=== PATIENT | male | born 1960 | race Hispanic/Latino ===

== ENCOUNTER 2022-10-27 07:41 | Day surgery (SDC) | payer OTHER ==
--- NOTE | 2022-10-26 11:38 | RAD REPORT ---
EXAM DESCRIPTION: RAD - Chest Pa And Lat (2 Views) - 10/26/2022 11:33 am CLINICAL HISTORY: preop for surgery, hypertension, diabetes COMPARISON: No comparisons FINDINGS: Lines: None. Lungs: No evidence of edema or pneumonia. Pleural: No significant pleural effusions or pneumothorax. Cardiac: The heart size is within normal limits. Mediastinum: Within normal limits. Bones: No acute fractures. Other: None IMPRESSION: No acute cardiopulmonary disease.
[2022-10-26 11:52] LABS: Absolute Lymphocytes (CBC) 1.2 K/uL (0.7-4.9); Hematocrit 28.5 % (39.6-49.0); Lymphocytes % 17.8 % (15.3-44.8); MCV 94.8 fL (80-100); Platelets 194 thou/uL (152-406)
[2022-10-26 12:00] LABS: Potassium 3.9 mEq/L (3.5-5.1)
[2022-10-27] MEDS ORDERED: NA CHLORIDE 0.9% 1,000 ML ONE (08:25)
[2022-10-27] MEDS ORDERED: KETOROLAC 30 MG/ML INJ ONE (08:58)
[2022-10-27] MEDS ORDERED: propofoL 200 MG/20 ML VIAL IV ONE ×2 (08:58→09:40)
[2022-10-27] MEDS ORDERED: FENTANYL CITR 100 MCG/2 ML ONE ×2 (08:58→09:41)
[2022-10-27] MEDS ORDERED: MIDAZOLAM HCL 2 MG/2 ML INJ ONE ×2 (08:58→09:41)
[2022-10-27] MEDS ORDERED: ONDANSETRON 4 MG/2 ML VIAL ONE ×2 (08:59→09:42)
[2022-10-27] MEDS ORDERED: dexAMETHasone 10 MG/ML VIAL ONE (08:59)
[2022-10-27] MEDS ORDERED: LIDOCAINE 2% MPF 5 ML VIAL ONE ×2 (08:59→09:41)
[2022-10-27] MEDS: CEFAZOLIN SODIUM 1 GM/VIAL ONE ×2 (09:34→09:51)
--- NOTE | 2022-10-27 11:33 | P.BOP ---
Preoperative diagnosis: right femoral lymphadenopathy Postoperative diagnosis: same Primary procedure: Right femoral femoral lymphnode excision (lymphadenectomy) [place] Operator: JOSÉ MIGUEL JEFFERSON (MULTIPLE SPINDLE ROUTER OPERATOR) Estimated blood loss: <10cc Specimen: enlarged lymphonode (3cm) Findings: large LN Anesthesia: General Complications: None Transferred to: Recovery Room Condition: Good
--- NOTE | 2022-10-27 12:59 | EKG ---
Test Date: 2022-10-26 Test Time: 11:37:24 Bean Viner: [place] MEASUREMENT RESULTS: Intervals: Rate: 62 KS: 192 QRSD: 100 QT: 442 QTc: 448 [place]: P: 31 KS: 192 QRS: 5 T: 37 INTERPRETIVE STATEMENTS: Normal sinus rhythm Normal ECG No previous ECG available for comparison Electronically Signed On 10-27-22 12:57:53 CDT by Champ Vega
[2022-10-27] MEDS ORDERED: CODEINE 30MG/APAP 300MG TAB ONE (13:06)
[2022-10-27 13:44] VITALS: TEMP 97; O2SAT 100
[2022-10-27 13:45] VITALS: BP 125/58
--- NOTE | 2022-10-29 18:04 | OP ---
Surgeon: Stoney Kaye MD Preoperative Diagnosis: Right groin mass/lymphadenopathy. Postoperative Diagnosis: Right lymphadenopathy. Procedures: Right lymph node dissection, lymphadenectomy in the femoral region. Anesthesia: General plus local. Complications: None. Findings: A large lymph node about 4 cm in size. Complications: None. Estimated Blood Loss: Less than 10 cc. Indication For Procedure: This is a case of a 62-year-old patient with a right groin mass. He has s ome other issues that include also multiple ventral incisional hernias, but that groin mass is increa sing in size giving pain and discomfort in origin. We believe it could be enlarged lymph node. He d oes not want a needle biopsy. He wants the mass removed, so we scheduled him for right lymph node ex cision of the right femoral region with benefits, alternatives, and risks including, but not limited to infection, bleeding, damage to adjacent structures, anesthesia complication, seroma, hematoma, AL, and even . He also understands this may not relieve the symptoms. He might need more than one surgical intervention. He understood, signed a consent. Description Of Procedure: Patient was brought to the operating room, placed in supine position, anes thesia was done without complication. The area of concern was marked by me and the patient in the ho lding room. A right groin incision was made. Incision was going down to the lymph node. Then, we n oticed patient has a large 4 cm lymph node. It could be few matted once together. We were able to l ocalize and slowly with dissection, removed the entire mass out. We removed that with the help of he moclips and also blunt dissection. The mass was completely excised, sent to the pathology. This are a was irrigated. We put a HARRIET drain in that area since we were afraid may have a seroma due to the si ze of this dissection and then the skin was closed with 3-0 chromic and elizabeth. Hemostasis was obta ined before closure. Sponge count and instrument counts were correct. Patient was sent to recovery in stable condition. CELESTE/NEDA Voice ID: [id number] Report ID: [id number]
--- NOTE | 2022-11-01 13:18 | DS ---
Date of Discharge: 10/27/2022 Diagnosis: Right lymph enlargement. Procedure: Right lymphadenectomy. Disposition: Home. Activity: As tolerated. No heavy lifting. Followup: In my office in 1 week. Call for appointment [phone]. Plan: HARRIET care explained. Record output q.24 hours. CELESTE/NEDA Voice ID: [id number] Report ID: [id number]
== END 2022-10-27 13:30 | disposition home or self-care (01) ==
LOC: OR 07:41
PROVIDERS: ATTEND Surgery
PROC: 07BF0ZX Excision of Right Lower Extremity Lymphatic, Open Approach, Diagnostic (ICD-10-PCS; principal; 2022-10-27 10:00)
DX: R59.0 Localized enlarged lymph nodes (principal)
CPT/HCPCS: 38500; 93005; 85025; 80048; 36415; 88312; 82947 ×2; 88305; 71046; J2704; J2001; J2250; J3010; J2405; J7030; J0690; 88307; J1100

== ENCOUNTER 2022-11-24 08:06 | Observation (INO) | payer OTHER ==
[2022-11-24 08:19] LABS: Absolute Lymphocytes (CBC) 1.5 K/uL (0.7-4.9); Hematocrit 28.2 % (39.6-49.0); Lymphocytes % 24.6 % (15.3-44.8); MCV 96.2 fL (80-100); MPV 7.6 fL (7.6-11.3); Platelets 209 thou/uL (152-406); RBC Red Blood Cell Count 2.93 M/uL (4.33-5.43)
[2022-11-24 08:27] LABS: Potassium 3.9 mEq/L (3.5-5.1)
[2022-11-24] MEDS ORDERED: CEFAZOLIN SODIUM 1 GM/VIAL ONE (08:45)
[2022-11-24] MEDS ORDERED: NA CHLORIDE 0.9% 1,000 ML ONE ×2 (08:45→12:47)
[2022-11-24] MEDS ORDERED: FENTANYL CITR 100 MCG/2 ML ONE (09:54)
[2022-11-24] MEDS ORDERED: LIDOCAINE 2% MPF 5 ML VIAL ONE (09:55)
[2022-11-24] MEDS ORDERED: MIDAZOLAM HCL 2 MG/2 ML INJ ONE (09:55)
[2022-11-24] MEDS ORDERED: ROCURONIUM 50 MG/5 ML VIAL IV ONE ×2 (09:55→12:11)
[2022-11-24] MEDS ORDERED: dexAMETHasone 4 MG/ML VIAL ONE (09:55)
[2022-11-24] MEDS ORDERED: ONDANSETRON 4 MG/2 ML VIAL ONE (09:55)
[2022-11-24] MEDS ORDERED: propofoL 200 MG/20 ML VIAL IV ONE (09:55)
[2022-11-24] MEDS ORDERED: NS 0.9% VIAL 10 ML ONE ×2 (12:45→12:46)
[2022-11-24] MEDS ORDERED: SUGAMMADEX SODIUM 200 MG/2 ML VIAL IV ONE (12:46)
[2022-11-24] MEDS ORDERED: ONDANSETRON 4 MG/2 ML VIAL IV PRN (13:25)
[2022-11-24] MEDS ORDERED: SODIUM CHLORIDE 0.9% 10ML INJ IV PRN (13:25)
--- NOTE | 2022-11-24 13:35 | P.BOP ---
Preoperative diagnosis: tender multiple incisional incarcerated ventral hernias [id number] Postoperative diagnosis: same plus extensive intrabdominal adhesions Primary procedure: Laparoscopic repair multiple incisional incarceraventral hernias with mesh Secondary procedure: Laparoscopic extensive intrabdominal adhesions Printing Manager: JOSÉ MIGUEL JEFFERSON (MAIL CARRIER AND CLERK) Estimated blood loss: <50cc Specimen: sac pieces Findings: multiples hernias, friable fascia, extensive intrabdominal adhesions Anesthesia: General Implants: ventralight ST with ECHO PS [id number] Transferred to: Recovery Room Condition: Good
[2022-11-24 15:14] VITALS: BMI 26.6
[2022-11-24] MEDS: NA CHLORIDE 0.9% 1,000 ML IV SCH (15:55)
[2022-11-24] MEDS: HYDROCODONE/APAP 5/325 MG TAB PO PRN (17:36)
[2022-11-24] MEDS: CEFOXITIN 1 GM in NA CHLORIDE 0.9% 50 ML IVPB SCH (17:37)
[2022-11-24] MEDS: HYDROMORPHONE HCL 1 MG/ML INJ IV PRN (21:21)
[2022-11-25] MEDS: CEFOXITIN 1 GM in NA CHLORIDE 0.9% 50 ML IVPB SCH ×2 (00:04→06:21)
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
[2022-11-25] MEDS: NA CHLORIDE 0.9% 1,000 ML IV SCH ×3 (06:23→15:24)
[2022-11-25 06:39] LABS: Potassium 4.4 mEq/L (3.5-5.1)
[2022-11-25 06:41] LABS: Absolute Lymphocytes (CBC) 0.8 K/uL (0.7-4.9); Hematocrit 26.5 % (39.6-49.0); Lymphocytes % 6.8 % (15.3-44.8); MCV 96.7 fL (80-100); MPV 8.1 fL (7.6-11.3); Platelets 189 thou/uL (152-406); RBC Red Blood Cell Count 2.74 M/uL (4.33-5.43)
[2022-11-25] MEDS: PANTOPRAZOLE 40 MG INJ IVP SCH (08:18)
[2022-11-25] MEDS: HYDROMORPHONE HCL 1 MG/ML INJ IV PRN (08:23)
--- NOTE | 2022-11-25 17:12 | PN ---
Date of Progress Note: 11/25/2022 Diagnoses: Status post multiple incarcerated incisional ventral hernias repaired with extensive intr a-abdominal adhesions. Subjective: The patient is doing well. Vital signs stable. He is tolerating diet, but he still req uired IV pain medication that we understand due to the magnitude of the surgery. He has a midline in cision on the abdomen from the xiphoid all the way down to the suprapubic from previous surgeries and multiple hernias in that region with extensive intra-abdominal adhesions. He is not eating complete ly his diet yet, but he is tolerating diet and whatever he takes. He preferred to stay here until to vina for pain control. He is also getting the assistance of the nurses of the rehab to ambulate pr operly. Physical Examination: Chest: Clear. Abdomen: Soft and depressible. Intact surgical site. Extremities: Good capillary refill. Laboratory Data: Blood work reviewed. Plan: Most likely, discharge home tomorrow. He has been followed by Dr. Schwarz for his renal insuffic iency. He is fully aware of that. He was advised the importance of following up with his primary do ctors when he gets discharged and no heavy lifting when he goes home. CELESTE/NEDA Voice ID: [id number] Report ID: [id number]
--- NOTE | 2022-11-25 19:47 | P.CNS ---
Date of Consult: 11/25/22 Reason for Consult: medical mgmt Requesting Physician: Stoney Kaye Chief Complaint: post op ventral hernia repair History of Present Illness: 62-year-old male with a past medical history of HTN, diabetes type 2, GERD, renal insufficiency stage 4, right inguinal hernia, abdominal adhesions is status post ventral hernia repair by Dr. Kaye 11/25/2022, has requested medical management for diabetes. Abdominal incision is clean dry and intact, abdominal binder in place. Patient is being admitted overnight for pain control. Patient is alert and oriented x3, tolerating a p.o. diet, pain is controlled with as needed analgesics. Laboratory evaluation hyperglycemia blood sugars 200-250, mild leukocytosis at 12.0, early left shift at 88.3, normocytic anemia 9.1, 26.5, CMP BUN 61, creatinine 2.69, GFR 26, Allergies No Known Allergies Allergy (Verified 11/24/22 07:52) Home Medications: Allopurinol 3 tab PO DAILY 10/26/22 Amlodipine [Norvasc] 10 mg PO DAILY 10/26/22 Aspirin [Aspirin Regimen] 1 tab PO DAILY 10/26/22 Atorvastatin Calcium 20 mg PO BEDTIME 10/26/22 Carvedilol [Coreg] 25 mg PO BID 10/26/22 Clopidogrel Bisulfate [Plavix] 75 mg PO DAILY 10/26/22 Ferrous Sulfate 325 mg PO BID 10/26/22 Furosemide [Lasix] 40 mg PO DAILY 10/26/22 Gabapentin 300 mg PO BEDTIME 10/26/22 Isosorbide Mononitrate [Isosorbide Mononitrate ER] 30 mg PO DAILY 10/26/22 Losartan Potassium 1 tab PO DAILY 10/26/22 Pantoprazole [Protonix Tab] 40 mg PO DAILY 10/26/22 Insulin Detemir [Levemir] 1 unit SQ BID 11/24/22 - Past Medical/Surgical History -: HTN -: GERD -: DM -: CHRONIC KIDNEY STAGE 4 -: RIGHT FEMORAL STENT -: OPEN VENTRAL HERNIA - Social History Smoking Status: Never smoker Alcohol use: Yes CD- Drugs: No Place of Residence: Home Review of Systems 10-point ROS is otherwise unremarkable Physical Examination Temp Pulse Resp BP Pulse Ox 98.3 F 68 18 157/74 H 94 11/25/22 19:36 11/25/22 19:36 11/25/22 19:36 11/25/22 19:36 11/25/22 19:36 General: Alert, In no apparent distress, Oriented x3 HEENT: Atraumatic, Normocephalic, Mucous membr. moist/pink Neck: Supple, 2+ carotid pulse no bruit, JVD not distended Respiratory: Clear to auscultation bilaterally, Normal air movement Cardiovascular: No edema, Normal pulses, Regular rate/rhythm Capillary refill: <2 Seconds Gastrointestinal: Normal bowel sounds, Other (Abdominal binder, incision soft and intact) Musculoskeletal: No clubbing, No swelling Integumentary: No rashes, No breakdown, Other (Abdominal surg incision intact) Neurological: Normal speech, Cranial nerves 3-12 intact Urinary: Other (Voiding) Laboratory Data (last 24 hrs) 11/25/22 11/25/22 05:54 05:54 WBC 12.00 H Hgb 9.1 L Hct 26.5 L Plt Count 189 Sodium 140 Potassium 4.4 BUN 61 H Creatinine 2.69 H Glucose 182 H Conclusions/Impression: Assessment plan right inguinal hernia, abdominal adhesions is status post ventral hernia repair by Dr. Kaye 11/25/2022, Leukocytosis X3 doses of IV antibiotics given per surgery, trend WBCs Surgery Dr. Kaye is following, as needed Dilaudid, as needed antiemetics Patient is being admitted overnight for pain control. Patient is alert and oriented x3, tolerating a p.o. diet, pain is controlled with as needed an algesics. mild leukocytosis at 12.0, early left shift at 88.3 diabetes type 2 Accu-Cheks, sliding scale insulin hyperglycemia blood sugars 200-250 Resume appropriate home medications renal insufficiency stage IV Nephrology consult CMP BUN 61, creatinine 2.69, GFR 26, Normocytic anemia likely secondary to chronic kidney disease normocytic anemia 9.1, 26.5, Trend H&H Hypertension GERD Pantoprazole Resume appropriate home hypertension medications DVT prophylaxis SCDs Cardiac diet Full code Physician Review: Patient Assessed, Agree with Above Assessment and Plan Critical Care: No Time Spent Managing Pts care (In Minutes): 50
[2022-11-25] MEDS ORDERED: ONDANSETRON 4 MG/2 ML VIAL IV PRN (19:48)
[2022-11-25] MEDS ORDERED: ACETAMINOPHEN 500 MG TAB PO PRN (19:48)
[2022-11-25] MEDS: INSULIN -REGULAR HUMAN 50 UNIT/0.5 ML ML SQ SCH (20:43)
[2022-11-25] MEDS ORDERED: MELATONIN 5 MG TABLET PO SCH (21:00)
[2022-11-25] MEDS ORDERED: ATORVASTATIN 20 MG TAB PO SCH (21:00)
[2022-11-25] MEDS ORDERED: INSULIN GLARGINE 100 UNIT/ML SQ SCH ×2 (21:00)
[2022-11-25] MEDS ORDERED: GABAPENTIN 300 MG CAP PO SCH (21:00)
[2022-11-25] MEDS: HYDROCODONE/APAP 5/325 MG TAB PO PRN (21:39)
[2022-11-26] MEDS: HYDROCODONE/APAP 5/325 MG TAB PO PRN (05:43)
[2022-11-26] MEDS: NA CHLORIDE 0.9% 1,000 ML IV SCH (05:43)
[2022-11-26] MEDS ORDERED: FUROSEMIDE 40 MG/4 ML VIAL IV ONE (06:04)
[2022-11-26 06:39] LABS: Absolute Lymphocytes (CBC) 1.6 K/uL (0.7-4.9); Hematocrit 25.3 % (39.6-49.0); Lymphocytes % 21.9 % (15.3-44.8); MCV 96.1 fL (80-100); MPV 7.8 fL (7.6-11.3); Platelets 177 thou/uL (152-406); RBC Red Blood Cell Count 2.63 M/uL (4.33-5.43)
[2022-11-26 06:49] LABS: Albumin 2.6 g/dL (3.4-5.0); Bilirubin Total 0.2 mg/dL (0.2-1.0); Magnesium 2.4 mg/dL (1.6-2.4); Phosphorus 3.4 mg/dL (2.5-4.9); Potassium 3.9 mEq/L (3.5-5.1); Protein, Total 6.2 g/dL (6.4-8.2)
[2022-11-26] MEDS: INSULIN -REGULAR HUMAN 50 UNIT/0.5 ML ML SQ SCH ×2 (07:30→11:30)
--- NOTE | 2022-11-26 07:30 | RAD REPORT ---
EXAM DESCRIPTION: RAD - Chest Single View - 11/26/2022 6:27 am CLINICAL HISTORY: patient is very congested COMPARISON: Chest Pa And Lat (2 Views) dated 10/26/2022 FINDINGS: Lines: None. Lungs: Decreased lung volumes and likely mild basilar atelectasis. Pleural: No significant pleural effusions or pneumothorax. Cardiac: The heart size is within normal limits. Mediastinum: Within normal limits. Bones: No acute fractures. Other: None IMPRESSION: Decreased lung volumes with likely basilar atelectasis. No consolidation or edema.
[2022-11-26] MEDS ORDERED: POTASSIUM CL SA 10 MEQ TAB PO ONE (07:55)
[2022-11-26] MEDS: PANTOPRAZOLE 40 MG INJ IVP SCH (07:59)
[2022-11-26] MEDS ORDERED: carvediloL 25 MG TAB PO SCH (08:00)
[2022-11-26 08:01] VITALS: BP 163/72
[2022-11-26] MEDS ORDERED: PANTOPRAZOLE 40MG TABLET PO SCH (09:00)
[2022-11-26] MEDS ORDERED: ISOSORBIDE MONO SR 30 MG TAB PO SCH (09:00)
[2022-11-26] MEDS ORDERED: LOSARTAN POTASSIUM 50 MG TABLET PO SCH (09:00)
[2022-11-26] MEDS ORDERED: allopurinoL 300 MG TAB PO SCH (09:00)
[2022-11-26] MEDS ORDERED: FUROSEMIDE 40 MG TABLET PO SCH (09:00)
[2022-11-26] MEDS ORDERED: AMLODIPINE 10 MG TAB PO SCH (09:00)
--- NOTE | 2022-11-26 09:21 | P.DS ---
Admission Date: 11/24/22 Discharge Date: 11/26/22 Disposition: ROUTINE DISCHARGE Discharge Condition: GOOD Reason for Admission: post op ventral hernia repair, extensive lysisof adhesions, ileous Vital Signs/Physical Exam: Temp Pulse Resp BP Pulse Ox 97.7 F 60 16 163/72 H 99 11/26/22 04:00 11/26/22 08:00 11/26/22 05:43 11/26/22 08:00 11/26/22 05:43 General: Alert, In no apparent distress, Oriented x3, Cooperative HEENT: Normocephalic, PERRLA Neck: Supple Respiratory: Normal air movement Cardiovascular: No edema, Normal pulses Gastrointestinal: Normal bowel sounds, Soft and benign, No rebound, No guarding Musculoskeletal: No erythema, No tenderness, No warmth, Other (passing gas) Integumentary: No rashes Laboratory Data at Discharge: WBC 7.50 thou/uL (4.3-10.9) 11/26/22 06:00 Hgb 8.8 g/dL (13.6-17.9) L 11/26/22 06:00 Hct 25.3 % (39.6-49.0) L 11/26/22 06:00 Plt Count 177 thou/uL (152-406) 11/26/22 06:00 Sodium 142 mEq/L (136-145) 11/26/22 06:00 Potassium 3.9 mEq/L (3.5-5.1) 11/26/22 06:00 BUN 42 mg/dL (7-18) H 11/26/22 06:00 Creatinine 2.19 mg/dL (0.70-1.30) H 11/26/22 06:00 Glucose 89 mg/dL (74-106) 11/26/22 06:00 Phosphorus 3.4 mg/dL (2.5-4.9) 11/26/22 06:00 Magnesium 2.4 mg/dL (1.6-2.4) 11/26/22 06:00 Total Bilirubin 0.2 mg/dL (0.2-1.0) 11/26/22 06:00 AST 20 U/L (15-37) 11/26/22 06:00 ALT 22 U/L (16-61) 11/26/22 06:00 Alkaline Phosphatase 112 U/L (45-117) 11/26/22 06:00 Home Medications: Allopurinol 3 tab PO DAILY 10/26/22 Amlodipine [Norvasc] 10 mg PO DAILY 10/26/22 Aspirin [Aspirin Regimen] 1 tab PO DAILY 10/26/22 Atorvastatin Calcium 20 mg PO BEDTIME 10/26/22 Carvedilol [Coreg] 25 mg PO BID 10/26/22 Clopidogrel Bisulfate [Plavix] 75 mg PO DAILY 10/26/22 Ferrous Sulfate 325 mg PO BID 10/26/22 Furosemide [Lasix] 40 mg PO DAILY 10/26/22 Gabapentin 300 mg PO BEDTIME 10/26/22 Isosorbide Mononitrate [Isosorbide Mononitrate ER] 30 mg PO DAILY 10/26/22 Losartan Potassium 1 tab PO DAILY 10/26/22 Pantoprazole [Protonix Tab] 40 mg PO DAILY 10/26/22 Insulin Detemir [Levemir] 1 unit SQ BID 11/24/22 Physician Discharge Instructions: Keep surgical area intact until next doctor visit Pt seeing his renal doctor Dr Davis as an outpatient. Diet: AHA Activity: No lifting more than 10 lbs Followup: Stoney Kaye MD [ACTIVE - CAN ADMIT] - 1 Week Davidson Gonzalez, RN [Primary Care Provider] - If your Symptoms Worsen
[2022-11-26 09:36] VITALS: TEMP 97.5; O2SAT 98
--- NOTE | 2022-11-26 10:56 | P.CNS ---
Date of Consult: 11/26/22 Reason for Consult: KALEIGH, CKD IIIB Requesting Physician: Nimo Bernard Chief Complaint: post op ventral hernia repair, extensive lysisof adhesions, ileous History of Present Illness: Pt is a 62-year-old male with a past medical history of chronic HTN, Type II DM with complications including CKD Stage IIIb/IV under the care of Dr. Schwarz, a hx of ventral hernias, abdominal adhesions s/p repair by Dr. Kaye 11/25/2022. Pt has been recovering well post surgery, abd pain controlled, binder in place. Denies nausea. Renal function tests better on repeat testing. Allergies No Known Allergies Allergy (Verified 11/24/22 07:52) Home Medications: Allopurinol 3 tab PO DAILY 10/26/22 Amlodipine [Norvasc] 10 mg PO DAILY 10/26/22 Aspirin [Aspirin Regimen] 1 tab PO DAILY 10/26/22 Atorvastatin Calcium 20 mg PO BEDTIME 10/26/22 Carvedilol [Coreg] 25 mg PO BID 10/26/22 Clopidogrel Bisulfate [Plavix] 75 mg PO DAILY 10/26/22 Ferrous Sulfate 325 mg PO BID 10/26/22 Furosemide [Lasix] 40 mg PO DAILY 10/26/22 Gabapentin 300 mg PO BEDTIME 10/26/22 Isosorbide Mononitrate [Isosorbide Mononitrate ER] 30 mg PO DAILY 10/26/22 Losartan Potassium 1 tab PO DAILY 10/26/22 Pantoprazole [Protonix Tab] 40 mg PO DAILY 10/26/22 Insulin Detemir [Levemir] 1 unit SQ BID 11/24/22 - Past Medical/Surgical History -: HTN -: GERD -: DM -: CHRONIC KIDNEY STAGE 4 -: RIGHT FEMORAL STENT -: OPEN VENTRAL HERNIA - Social History Smoking Status: Never smoker Alcohol use: Yes CD- Drugs: No Place of Residence: Home Review of Systems General: Unremarkable Eyes: Unremarkable ENT: Unremarkable Respiratory: Unremarkable Cardiovascular: Other (Some hx of peripheral edema at times), As per HPI, Unremarkable Gastrointestinal: As per HPI Genitourinary: Unremarkable Musculoskeletal: Unremarkable Integumentary: Unremarkable Neurological: Unremarkable Physical Examination Temp Pulse Resp BP Pulse Ox 97.5 F 60 16 163/72 H 98 11/26/22 08:00 11/26/22 08:00 11/26/22 08:00 11/26/22 08:00 11/26/22 08:00 General: Alert, In no apparent distress, Oriented x3 HEENT: Atraumatic, Normocephalic Neck: Supple Respiratory: Clear to auscultation bilaterally, Normal air movement Cardiovascular: No edema, Regular rate/rhythm, Normal S1 S2 Gastrointestinal: Non-distended, No tenderness, Other (Abd binder in place, surgical incision not examined) Musculoskeletal: No swelling, No contractures Integumentary: No rashes Neurological: Normal speech, Normal tone, Normal affect Laboratory Data (last 24 hrs) 11/26/22 11/26/22 06:00 06:00 WBC 7.50 Hgb 8.8 L Hct 25.3 L Plt Count 177 Sodium 142 Potassium 3.9 BUN 42 H Creatinine 2.19 H Glucose 89 Phosphorus 3.4 Magnesium 2.4 Total Bilirubin 0.2 AST 20 ALT 22 Alkaline Phosphatase 112 Conclusions/Impression: A/P) 1. Stage 1 KALEIGH on underlying CKD IIIb/IV 2nd to chronic DM/HTN, with KALEIGH presumably 2nd to some pre-renal azotemia with Cr level downward trending 2. Cont to monitor renal function closely, pt will f/u with Dr. Schwarz on discharge 3. BP mod elevated, if renal function remains stable at baseline range, ARB dose can be titrated as OP or loop diuretic switched to a thiazide one 4. Volume status controlled. 5. Anemia 2nd to CKD, surgical losses, other -f/u as OP, if Hb remains < 9, can arrange for AJAY therapy or IV iron as OP Elia Browning MD, NADIA
== END 2022-11-26 12:50 | disposition home or self-care (01) ==
LOC: PRE 08:06 → 4TH 13:28
PROVIDERS: ADMIT Surgery; ATTEND Surgery
PROC: 0DNW4ZZ Release Peritoneum, Percutaneous Endoscopic Approach (ICD-10-PCS; 2022-11-24)
PROC: 0WUF4JZ Supplement Abdominal Wall with Synthetic Substitute, Percutaneous Endoscopic Approach (ICD-10-PCS; principal; 2022-11-24 11:30)
DX: K43.0 Incisional hernia with obstruction, without gangrene (principal); K66.0 Peritoneal adhesions (postprocedural) (postinfection); K56.7 Ileus, unspecified; I10 Essential (primary) hypertension; E11.9 Type 2 diabetes mellitus without complications; K21.9 Gastro-esophageal reflux disease without esophagitis; N28.9 Disorder of kidney and ureter, unspecified; D63.1 Anemia in chronic kidney disease; N18.32 Chronic kidney disease, stage 3b
CPT/HCPCS: 85025 ×3; 80048 ×2; 36415 ×2; 83735; 84100; 82947 ×10; 88302; 80053; 83880; 71045; 97116 ×2; 97161; 94010 ×2; 49596; 49329; J1815; A4216 ×2; J2704; J1100; J1940; J2001; C9113 ×2; J2250; J3010; J1170 ×4; J0694 ×3; J2405; J7030 ×6; J0690; G0378; G0379